=== PATIENT | male | born 1995 | race Caucasian/White ===

== ENCOUNTER 2023-04-28 14:59 | Emergency (ER) | payer MEDICAID ==
[~2023-04-28] VITALS: Ht 170.2 cm; Wt 79.4 kg
[2023-04-28 15:14] VITALS: BP_SYST 139; PULSE 79; RESP 18; TEMP 98.3; O2SAT 95
== END 2023-04-28 16:35 | disposition home or self-care (01) ==
LOC: SED 14:59
DX: Z00.00 Encounter for general adult medical examination without abnormal findings (principal); R76.11 Nonspecific reaction to tuberculin skin test without active tuberculosis; F15.10 Other stimulant abuse, uncomplicated; F17.210 Nicotine dependence, cigarettes, uncomplicated; Z79.899 Other long term (current) drug therapy
CPT/HCPCS: 71045; 99283